=== PATIENT | female | born 1980 | race Hispanic/Latino ===

== ENCOUNTER 2018-08-23 11:48 | Emergency (ER) | payer OTHER, SELFPAY ==
[2018-08-23 12:45] LABS: APPEARANCE,URINE CLOUDY (CLEAR); BILIRUBIN,URINE NEGATIVE (NEGATIVE); COLOR,URINE YELLOW (YELLOW); GLUCOSE, URINE (UA) NEGATIVE (NEGATIVE); KETONES,URINE 40 mg/dL (NEGATIVE); LEUKOCYTE ESTERASE ,URINE NEGATIVE (NEGATIVE); NITRATE,URINE POSITIVE (NEGATIVE); OCCULT BLOOD,URINE LARGE (NEGATIVE); PH,URINE 5.5 (5.0-8.0); PROTEIN,URINE 30 mg/dL (NEGATIVE); UROBILINOGEN,URINE 0.2 mg/dL (0.2-1.0)
[2018-08-23 12:46] LABS: HCG,QUAL RESULT POSITIVE (NEGATIVE)
[2018-08-23 12:49] LABS: EOSINOPHILS % (AUTO) 0.4 % (0.0-8.0); HEMATOCRIT 39.8 % (36-48); LYMPHOCYTES % (AUTO) 22.4 % (21.0-51.0); MEAN CORPUSCULAR HEMOGLOBIN 32.7 pg (27.0-33.0); MEAN CORPUSCULAR HGB CONC 34.2 g/dL (32.0-36.0); MEAN CORPUSCULAR VOLUME 95.7 fL (79-99); MONOCYTES % (AUTO) 6.9 % (3.0-13.0); NEUTROPHILS % (AUTO) 69.3 % (40.0-77.0); PLATELET COUNT (AUTO) 242 K/uL (130-400); RED BLOOD CELL COUNT(AUTO) 4.17 MIL/uL (4.00-5.50); RED CELL DISTRIBUTION WIDTH 12.3 % (11.0-15.5); WHITE BLOOD COUNT (AUTO) 6.3 K/uL (4.8-10.8)
[2018-08-23 13:16] LABS: BACTERIA,URINE Rare /HPF (None Seen); RBC,URINE TNTC /HPF (0-1)
[2018-08-23 13:17] LABS: SQUAMOUS EPITHELIAL CELL,UR Rare /HPF (0-2)
== END 2018-08-23 15:24 | disposition home or self-care (01) ==
LOC: EDH 11:48
DX: O20.9 Hemorrhage in early pregnancy, unspecified (principal); Z3A.01 Less than 8 weeks gestation of pregnancy
CPT/HCPCS: 36415; 76817; 81001; 81025; 84702; 85025; 86900; 86901

== ENCOUNTER 2019-05-21 12:34 | Emergency (ER) | payer BC, MEDICAID ==
[2019-05-21 14:06] LABS: BASOPHILS % (AUTO) 0.5 % (0.0-5.0); EOSINOPHILS % (AUTO) 0.4 % (0.0-8.0); LYMPHOCYTES % (AUTO) 18.6 % (21.0-51.0); MEAN CORPUSCULAR HEMOGLOBIN 31.9 pg (27.0-33.0); MEAN CORPUSCULAR HGB CONC 34.9 g/dL (32.0-36.0); MEAN CORPUSCULAR VOLUME 91.3 fL (79-99); NEUTROPHILS % (AUTO) 73.1 % (40.0-77.0); PLATELET COUNT (AUTO) 253 K/uL (130-400); RED BLOOD CELL COUNT(AUTO) 4.27 MIL/uL (4.00-5.50); RED CELL DISTRIBUTION WIDTH 11.6 % (11.0-15.5); WHITE BLOOD COUNT (AUTO) 7.5 K/uL (4.8-10.8)
[2019-05-21 14:38] LABS: CREATININE 0.6 mg/dL (0.5-1.5); POTASSIUM 3.9 mmol/L (3.5-5.1)
== END 2019-05-21 15:57 | disposition home or self-care (01) ==
LOC: EDH 12:34
DX: O26.891 Other specified pregnancy related conditions, first trimester (principal); R10.2 Pelvic and perineal pain; Z87.891 Personal history of nicotine dependence; Z3A.01 Less than 8 weeks gestation of pregnancy
CPT/HCPCS: 36415; 76817; 80048; 84702; 85025; 86900; 86901

== ENCOUNTER 2020-06-07 10:34 | Emergency (ER) | payer BC, MEDICAID ==
[2020-06-07] MEDS ORDERED: ONDANSETRON HCL 4 MG/2 ML VIAL ONE ×2 (10:40→11:09)
[2020-06-07 11:00] LABS: BASOPHILS % (AUTO) 0.8 % (0.0-5.0); EOSINOPHILS % (AUTO) 0.4 % (0.0-8.0); LYMPHOCYTES % (AUTO) 30.8 % (21.0-51.0); MEAN CORPUSCULAR HEMOGLOBIN 29.9 pg (27.0-33.0); MEAN CORPUSCULAR HGB CONC 33.8 g/dL (32.0-36.0); MEAN CORPUSCULAR VOLUME 88.2 fL (79-99); MONOCYTES % (AUTO) 7.1 % (3.0-13.0); NEUTROPHILS % (AUTO) 60.6 % (40.0-77.0); PLATELET COUNT (AUTO) 295 K/uL (130-400); RED BLOOD CELL COUNT(AUTO) 4.42 MIL/uL (4.00-5.50); RED CELL DISTRIBUTION WIDTH 13.2 % (11.0-15.5); WHITE BLOOD COUNT (AUTO) 7.6 K/uL (4.8-10.8)
[2020-06-07 11:05] LABS: CREATININE 0.8 mg/dL (0.5-1.5); POTASSIUM 3.7 mmol/L (3.5-5.1)
[2020-06-07] MEDS ORDERED: SODIUM CHLORIDE 0.9% 1000ML 1,000 ML IV ONE (11:09)
[2020-06-07 11:10] LABS: ALBUMIN 3.9 g/dL (3.5-5.0); BILIRUBIN,TOTAL 0.3 mg/dL (0.2-1.0); TOTAL PROTEIN, SERUM 7.4 g/dL (6.0-8.3)
[2020-06-07] MEDS ORDERED: KETOROLAC TROMETHAMINE 30MG/ML ONE (11:10)
[2020-06-07] MEDS ORDERED: MORPHINE SULFATE 4 MG/1ML SYG ONE (11:10)
[2020-06-07 11:20] LABS: APPEARANCE,URINE Clear (CLEAR); BILIRUBIN,URINE Negative (NEGATIVE); COLOR,URINE Yellow (YELLOW); GLUCOSE, URINE (UA) Negative (NEGATIVE); KETONES,URINE Negative (NEGATIVE); LEUKOCYTE ESTERASE ,URINE Trace (NEGATIVE); NITRATE,URINE Negative (NEGATIVE); OCCULT BLOOD,URINE Negative (NEGATIVE); PH,URINE 7.5 (5.0-8.0); PROTEIN,URINE Negative (NEGATIVE); UROBILINOGEN,URINE 0.2 mg/dL (0.2-1.0)
[2020-06-07 11:22] LABS: HCG,QUAL RESULT NEGATIVE (NEGATIVE)
[2020-06-07 11:25] LABS: BACTERIA,URINE Moderate /HPF (None Seen); RBC,URINE 0-1 /HPF (0-1); SQUAMOUS EPITHELIAL CELL,UR Many /HPF (0-2)
== END 2020-06-07 13:44 | disposition home or self-care (01) ==
LOC: EDH 10:34
DX: K80.20 Calculus of gallbladder without cholecystitis without obstruction (principal); M62.81 Muscle weakness (generalized); Z98.890 Other specified postprocedural states
CPT/HCPCS: 36415; 76705; 80053; 81001; 81025; 83690; 85025; 87088; 96361; 96374; 96375; 99284; J1885; J2270; J2405; J7030

== ENCOUNTER 2020-07-18 13:48 | Emergency (ER) | payer BC, MEDICAID ==
[2020-07-18 14:37] LABS: BASOPHILS % (AUTO) 0.4 % (0.0-5.0); EOSINOPHILS % (AUTO) 1.8 % (0.0-8.0); HEMATOCRIT 37.1 % (36-48); LYMPHOCYTES % (AUTO) 12.7 % (21.0-51.0); MEAN CORPUSCULAR HEMOGLOBIN 30.5 pg (27.0-33.0); MEAN CORPUSCULAR HGB CONC 35.3 g/dL (32.0-36.0); MEAN CORPUSCULAR VOLUME 86.3 fL (79-99); MONOCYTES % (AUTO) 8.1 % (3.0-13.0); NEUTROPHILS % (AUTO) 76.7 % (40.0-77.0); PLATELET COUNT (AUTO) 280 K/uL (130-400); RED CELL DISTRIBUTION WIDTH 12.7 % (11.0-15.5); WHITE BLOOD COUNT (AUTO) 9.6 K/uL (4.8-10.8)
[2020-07-18 14:40] LABS: APPEARANCE,URINE Clear (CLEAR); BILIRUBIN,URINE Negative (NEGATIVE); COLOR,URINE Dark Yellow (YELLOW); GLUCOSE, URINE (UA) Negative (NEGATIVE); KETONES,URINE Trace mg/dL (NEGATIVE); LEUKOCYTE ESTERASE ,URINE Trace (NEGATIVE); NITRATE,URINE Positive (NEGATIVE); OCCULT BLOOD,URINE Negative (NEGATIVE); PROTEIN,URINE Trace mg/dL (NEGATIVE)
[2020-07-18 15:22] LABS: BACTERIA,URINE Few /HPF (None Seen); RBC,URINE 0-1 /HPF (0-1); SQUAMOUS EPITHELIAL CELL,UR Few /HPF (0-2)
[2020-07-18 15:23] LABS: MUCUS,URINE Moderate LPF (None Seen)
== END 2020-07-18 16:05 | disposition home or self-care (01) ==
LOC: EDH 13:48
DX: O23.41 Unspecified infection of urinary tract in pregnancy, first trimester (principal); Z3A.01 Less than 8 weeks gestation of pregnancy; Z98.890 Other specified postprocedural states
CPT/HCPCS: 36415; 81001; 84702; 85025; 86900; 86901; 87088; 96372

== ENCOUNTER 2021-02-06 08:10 | Inpatient (IN) | payer BC, MEDICAID ==
[~2021-02-06] VITALS: Ht 149.9 cm; Wt 84.4 kg
[2021-02-06 08:46] LABS: APPEARANCE,URINE Clear (CLEAR); BILIRUBIN,URINE Negative (NEGATIVE); COLOR,URINE Yellow (YELLOW); GLUCOSE, URINE (UA) Negative (NEGATIVE); KETONES,URINE Trace mg/dL (NEGATIVE); LEUKOCYTE ESTERASE ,URINE Moderate (NEGATIVE); NITRATE,URINE Negative (NEGATIVE); OCCULT BLOOD,URINE Negative (NEGATIVE); PH,URINE 6.5 (5.0-8.0); PROTEIN,URINE Negative (NEGATIVE); UROBILINOGEN,URINE 0.2 mg/dL (0.2-1.0)
[2021-02-06 08:58] LABS: BACTERIA,URINE Moderate /HPF (None Seen); MUCUS,URINE Moderate LPF (None Seen); RBC,URINE 0-1 /HPF (0-1); WBC,URINE 0-1 /HPF (0-1)
[2021-02-06] MEDS: LACTATED RINGERS 1000ML 1,000 ML IV SCH ×3 (09:25→22:50)
[2021-02-06] MEDS ORDERED: LACTATED RINGERS 1000ML 1,000 ML IV PRN (14:00)
[2021-02-06] MEDS ORDERED: CEFAZOLIN SODIUM 1 GM VIAL IVP PRN (14:00)
[2021-02-06] MEDS ORDERED: LACTATED RINGERS 1000ML 1,000 ML IV SCH (14:00)
[2021-02-06 14:17] LABS: HEMATOCRIT 36.9 % (36-48); MEAN CORPUSCULAR HEMOGLOBIN 30.1 pg (27.0-33.0); MEAN CORPUSCULAR HGB CONC 33.1 g/dL (32.0-36.0); MEAN CORPUSCULAR VOLUME 91.1 fL (79-99); RED BLOOD CELL COUNT(AUTO) 4.05 MIL/uL (4.00-5.50); RED CELL DISTRIBUTION WIDTH 14.2 % (11.0-15.5); WHITE BLOOD COUNT (AUTO) 7.7 K/uL (4.8-10.8)
[2021-02-06] MEDS ORDERED: ONDANSETRON 4MG INJ ONE (18:00)
[2021-02-06] MEDS ORDERED: MORPHINE PF 100MG/10ML AMP IV ONE (18:00)
[2021-02-06] MEDS ORDERED: EPINEPHRINE PF 1MG AMP ONE (19:40)
[2021-02-06] MEDS ORDERED: MIDAZOLAM HCL 1 MG/ML 2ML VIAL ONE (19:41)
[2021-02-06] MEDS ORDERED: OXYTOCIN 10 UNIT/1ML 10ML VIAL ONE (19:43)
[2021-02-06] MEDS: OXYTOCIN-LR 20 UNITS/1000 ML 1,000 ML IV SCH (22:46)
[2021-02-06] MEDS ORDERED: DEXTROSE 5 %-0.45 % NACL 1,000 ML IV PRN (23:00)
[2021-02-06] MEDS ORDERED: MEPERIDINE-PF 75 MG/ML SYG IM PRN (23:00)
[2021-02-06] MEDS ORDERED: OXYTOCIN-LR 20 UNITS/1000 ML 1,000 ML IV PRN (23:00)
[2021-02-06] MEDS ORDERED: 0.9%NACL 10ML VIAL IVP PRN (23:00)
[2021-02-06] MEDS ORDERED: PROMETHAZINE HCL 25 MG/ML 1ML AMPULE IM PRN (23:00)
[2021-02-06 23:10] VITALS: BP 130/72
[2021-02-06] MEDS ORDERED: ACETAMINOPHEN WITH CODEINE 1 TAB TAB PO PRN (23:30)
[2021-02-06] MEDS: ONDANSETRON 4MG INJ IVP PRN (23:56)
[2021-02-07] MEDS ORDERED: PREN-154 PO (00:13)
[2021-02-07] MEDS: OXYTOCIN-LR 20 UNITS/1000 ML 1,000 ML IV SCH (02:43)
[2021-02-07] MEDS ORDERED: DIPH,PERTUSS(ACELL),TET VAC/PF 0.5 ML VIAL IM ONE (03:00)
[2021-02-07 03:08] VITALS: BP 103/54
[2021-02-07] MEDS: LACTATED RINGERS 1000ML 1,000 ML IV SCH (05:30)
[2021-02-07 06:12] LABS: HEPATITIS Bs ANTIGEN SCREEN P Negative (Negative)
[2021-02-07 07:15] VITALS: BP 108/49
[2021-02-07 07:58] LABS: HEMATOCRIT 33.5 % (36-48); MEAN CORPUSCULAR HEMOGLOBIN 30.5 pg (27.0-33.0); MEAN CORPUSCULAR HGB CONC 33.7 g/dL (32.0-36.0); MEAN CORPUSCULAR VOLUME 90.3 fL (79-99); RED BLOOD CELL COUNT(AUTO) 3.71 MIL/uL (4.00-5.50); RED CELL DISTRIBUTION WIDTH 13.6 % (11.0-15.5); WHITE BLOOD COUNT (AUTO) 13.3 K/uL (4.8-10.8)
[2021-02-07] MEDS ORDERED: LANOLIN 30GM OINTMENT TP PRN (08:00)
[2021-02-07] MEDS ORDERED: ACETAMINOPHEN 500 MG TABLET PO PRN (08:00)
[2021-02-07] MEDS ORDERED: BISACODYL 10 MG SUPP.RECT RC PRN (08:00)
[2021-02-07] MEDS ORDERED: HYDROCODONE/ACETAMINOPHEN 5/325 MG TAB PO PRN (08:00)
[2021-02-07] MEDS ORDERED: ACETAMINOPHEN WITH CODEINE 1 TAB TAB PO PRN (08:00)
[2021-02-07] MEDS: SIMETHICONE 80 MG TAB.CHEW PO PRN (09:48)
[2021-02-07] MEDS: ONDANSETRON 4MG INJ IVP PRN (09:48)
[2021-02-07] MEDS: DOCUSATE SODIUM 100 MG CAP PO SCH ×2 (09:48→23:08)
[2021-02-07] MEDS: IBUPROFEN 600 MG TABLET PO PRN ×2 (09:49→15:17)
[2021-02-07 12:13] VITALS: BP 100/47
[2021-02-07 16:29] VITALS: BP 107/51
[2021-02-07 19:50] VITALS: BP 102/68
[2021-02-07 23:36] VITALS: BP 89/50
[2021-02-08 03:07] VITALS: BP 107/55
[2021-02-08 07:19] VITALS: BP 96/60
[2021-02-08] MEDS: SIMETHICONE 80 MG TAB.CHEW PO PRN ×2 (07:37→14:42)
[2021-02-08] MEDS: DOCUSATE SODIUM 100 MG CAP PO SCH (07:37)
[2021-02-08] MEDS: IBUPROFEN 600 MG TABLET PO PRN ×2 (07:40→15:23)
[2021-02-08 11:12] VITALS: BP 105/60
== END 2021-02-08 15:45 | disposition home or self-care (01) | DRG 540 ==
LOC: EDH 08:10 → OBSVTOIN 08:11 → LDH 08:11 → WSH 23:05
PROVIDERS: ADMIT Specialist; ATTEND Specialist
PROC: 0UB70ZZ Excision of Bilateral Fallopian Tubes, Open Approach (ICD-10-PCS; 2021-02-06)
PROC: 3E0234Z Introduction of Serum, Toxoid and Vaccine into Muscle, Percutaneous Approach (ICD-10-PCS; 2021-02-06)
PROC: 10D00Z1 Extraction of Products of Conception, Low, Open Approach (ICD-10-PCS; principal; 2021-02-06 19:00)
DX: O34.211 Maternal care for low transverse scar from previous cesarean delivery (principal); Z23 Encounter for immunization; Z37.0 Single live birth; Z3A.37 37 weeks gestation of pregnancy; Z30.2 Encounter for sterilization; Z82.49 Family history of ischemic heart disease and other diseases of the circulatory system
CPT/HCPCS: 36415; 59510; 74018; 81001; 85027; 86592; 86850; 86900; 86901; 87088; 87340; 88302; 90715; A4344; G0378; J0171; J0690; J2175; J2250; J2274; J2405; J2550; J2590; J7120

== ENCOUNTER 2021-08-20 14:03 | Emergency (ER) | payer MEDICAID ==
[~2021-08-20] VITALS: Ht 149.9 cm; Wt 68.0 kg
[~2021-08-20 14:03] MED LIST: PREN-154 PO
[2021-08-20 15:09] LABS: BASOPHILS % (AUTO) 0.9 % (0.0-5.0); EOSINOPHILS % (AUTO) 0.8 % (0.0-8.0); HEMATOCRIT 41.5 % (36-48); LYMPHOCYTES % (AUTO) 29.5 % (21.0-51.0); MEAN CORPUSCULAR HEMOGLOBIN 30.7 pg (27.0-33.0); MEAN CORPUSCULAR VOLUME 90.4 fL (79-99); MONOCYTES % (AUTO) 8.6 % (3.0-13.0); NEUTROPHILS % (AUTO) 59.8 % (40.0-77.0); PLATELET COUNT (AUTO) 238 K/uL (130-400); RED BLOOD CELL COUNT(AUTO) 4.59 MIL/uL (4.00-5.50); RED CELL DISTRIBUTION WIDTH 12.1 % (11.0-15.5); WHITE BLOOD COUNT (AUTO) 5.3 K/uL (4.8-10.8)
[2021-08-20 15:16] LABS: APPEARANCE,URINE Clear (CLEAR); BILIRUBIN,URINE Negative (NEGATIVE); COLOR,URINE Yellow (YELLOW); GLUCOSE, URINE (UA) Negative (NEGATIVE); KETONES,URINE Negative (NEGATIVE); LEUKOCYTE ESTERASE ,URINE Small (NEGATIVE); NITRATE,URINE Negative (NEGATIVE); OCCULT BLOOD,URINE Trace (NEGATIVE); PH,URINE 5.5 (5.0-8.0); PROTEIN,URINE Negative (NEGATIVE); UROBILINOGEN,URINE 0.2 mg/dL (0.2-1.0)
[2021-08-20 15:20] LABS: HCG,QUAL RESULT NEGATIVE (NEGATIVE)
[2021-08-20 15:21] LABS: CREATININE 0.6 mg/dL (0.5-1.5); POTASSIUM 3.5 mmol/L (3.5-5.1)
[2021-08-20 15:25] LABS: ALBUMIN 3.7 g/dL (3.5-5.0); BILIRUBIN,TOTAL 0.4 mg/dL (0.2-1.0); TOTAL PROTEIN, SERUM 6.8 g/dL (6.0-8.3)
[2021-08-20 15:27] LABS: BACTERIA,URINE Few /HPF (None Seen); MUCUS,URINE Moderate LPF (None Seen); RBC,URINE None Seen /HPF (0-1)
[2021-08-20] MEDS: 0.9%NACL 1000ML 1,000 ML IV ONE (16:08)
[2021-08-20] MEDS: ONDANSETRON 4MG INJ IVP ONE (16:08)
[2021-08-20] MEDS: KETOROLAC 15MG/ML VIAL (15MG/ML) IV ONE (16:08)
[2021-08-20] MEDS ORDERED: NAPR500T6 PO (16:54)
[2021-08-20] MEDS ORDERED: ONDA4TAB10 PO (16:55)
[2021-08-20 17:09] VITALS: BP 125/78
== END 2021-08-20 17:11 | disposition home or self-care (01) ==
LOC: EDH 14:03
DX: K80.20 Calculus of gallbladder without cholecystitis without obstruction (principal); Z79.1 Long term (current) use of non-steroidal anti-inflammatories (NSAID); Z79.899 Other long term (current) drug therapy
CPT/HCPCS: 36415; 76705; 80053; 81001; 81025; 83690; 85025; 96361; 96374; 96375; 99284; J1885; J2405; J7030